=== PATIENT | male | born 1990 | race Caucasian/White ===

== ENCOUNTER 2021-08-07 16:15 | Emergency (ER) | payer MEDICAID ==
[~2021-08-07] VITALS: Ht 170.2 cm; Wt 68.2 kg
[2021-08-07] MEDS ORDERED: ACETAMINOPHEN 500 MG TABLET PO ONE (17:00)
[2021-08-07 19:30] VITALS: BP 112/72
== END 2021-08-07 19:41 ==
LOC: EMS 16:15
DX: S13.4XXA Sprain of ligaments of cervical spine, initial encounter (principal); S09.8XXA Other specified injuries of head, initial encounter; V89.2XXA Person injured in unspecified motor-vehicle accident, traffic, initial encounter; Y93.89 Activity, other specified; Y92.89 Other specified places as the place of occurrence of the external cause; Y99.8 Other external cause status
CPT/HCPCS: 70450; 72125; 99284

== ENCOUNTER 2025-02-10 17:49 | Inpatient (IN) | payer MEDICAID, OTHER ==
[~2025-02-10] VITALS: Ht 182.9 cm; Wt 77.7 kg
[2025-02-10] MEDS ORDERED: HYDROCODONE/ACETAMINOPHEN 5-325 MG TABLET PO PRN (19:45)
[2025-02-10] MEDS ORDERED: MORPHINE SULFATE 4 MG/ML SYRINGE IVP PRN (19:45)
[2025-02-10] MEDS ORDERED: ZOLPIDEM TARTRATE 5 MG TABLET PO PRN (19:45)
[2025-02-10] MEDS ORDERED: IPRATROPIUM BROMIDE 0.5 MG/2.5 ML NEB SOLUTION NEB PRN (19:45)
[2025-02-10] MEDS ORDERED: PROMETHAZINE HCL 25 MG TABLET PO PRN (19:45)
[2025-02-10] MEDS ORDERED: IBUPROFEN 600 MG TABLET PO PRN (19:45)
[2025-02-10] MEDS ORDERED: DICYCLOMINE HCL 10 MG CAPSULE PO PRN (19:45)
[2025-02-10] MEDS ORDERED: BISACODYL 10 MG RECTAL RECTAL SUPPOSITORY PR PRN (19:45)
[2025-02-10] MEDS ORDERED: LOPERAMIDE HCL 2 MG/15 ML SUSPENSION UDCUP PO PRN (19:45)
[2025-02-10] MEDS ORDERED: ACETAMINOPHEN 325 MG TABLET PO PRN ×2 (19:45)
[2025-02-10] MEDS ORDERED: MAGNESIUM HYDROXIDE SUSPENSION 30 ML UDCUP PO PRN (19:45)
[2025-02-10] MEDS ORDERED: ALBUTEROL SULFATE 2.5 MG/0.5 ML NEB SOLUTION NEB PRN (19:45)
[2025-02-10] MEDS ORDERED: MAG HYDROX/ALUMINUM HYD/SIMETH ES 30 ML SUSPENSION UDCUP PO PRN (19:45)
[2025-02-10] MEDS ORDERED: BACLOFEN 10 MG TABLET PO PRN (19:45)
[2025-02-10] MEDS ORDERED: ONDANSETRON HCL 4 MG/2 ML VIAL IVP PRN (19:45)
[2025-02-10 20:08] LABS: PLATELET COUNT (AUTO) 321 K/uL (150-450); RED BLOOD CELL COUNT(AUTO) 4.68 MIL/uL (4.50-5.90); RED CELL DISTRIBUTION WIDTH 14.7 % (11.5-14.5); WHITE BLOOD COUNT (AUTO) 6.0 K/uL (4.5-11.0)
[2025-02-10] MEDS: SODIUM CHLORIDE 0.45% 1,000 ML IV SCH (20:11)
[2025-02-10 20:17] LABS: CALCIUM, TOTAL 9.1 mg/dL (8.8-10.5); CREATININE 0.80 mg/dL (0.60-1.30); GLOMERULAR FILTR. RATE CALC > 60 mL/min (>60); GLUCOSE,RANDOM 107 mg/dL (70-110); SODIUM SERUM 142 mmol/L (136-145); UREA NITROGEN, BLOOD 22 mg/dL (7-18)
[2025-02-10 20:23] LABS: ASPARTATE AMINOTRANSFERASE 21 U/L (15-37); TOTAL PROTEIN, SERUM 7.2 g/dL (6.4-8.2)
[2025-02-10 20:29] LABS: ALCOHOL, BLOOD (SERUM) < 3 mg/dL (0-10)
[2025-02-10 21:39] VITALS: BP 120/73; PULSE 66; RESP 18; TEMP 98.1; O2SAT 100
[2025-02-10] MEDS: POTASSIUM CHLORIDE 20 MEQ ER TABLET PO ONE (22:18)
[2025-02-11] MEDS: HEPARIN SODIUM,PORCINE 5,000 UNITS/ML VIAL SQ SCH (00:15)
[2025-02-11 05:18] VITALS: BP 105/66; PULSE 68; RESP 18; TEMP 97.7; O2SAT 100
[2025-02-11 06:19] LABS: PH,URINE DRUG SCREEN 6.0 (5.0-8.0)
[2025-02-11 06:28] LABS: ALCOHOL, URINE DRUG SCREEN NEGATIVE (NEGATIVE); AMPHET/METH SCREEN,URINE POSITIVE (NEGATIVE); BARBITURATE SCREEN, URINE NEGATIVE (NEGATIVE); CANNABINOID SCREEN,URINE POSITIVE (NEGATIVE); COCAINE SCREEN,URINE NEGATIVE (NEGATIVE); METHADONE SCREEN, URINE NEGATIVE (NEGATIVE)
[2025-02-11 07:21] LABS: CALCIUM, TOTAL 8.8 mg/dL (8.8-10.5); CREATININE 0.84 mg/dL (0.60-1.30); GLOMERULAR FILTR. RATE CALC > 60 mL/min (>60); GLUCOSE,RANDOM 89 mg/dL (70-110); SODIUM SERUM 142 mmol/L (136-145); UREA NITROGEN, BLOOD 21 mg/dL (7-18)
[2025-02-11 08:00] VITALS: BP 98/61; PULSE 76; RESP 18; TEMP 98.1; O2SAT 100
[2025-02-11] MEDS: PANTOPRAZOLE SODIUM 40 MG DR TABLET PO SCH (09:04)
[2025-02-11 12:00] VITALS: BP 102/59; PULSE 65
[2025-02-11 17:00] VITALS: BP 100/60; PULSE 77; RESP 19; TEMP 98.3; O2SAT 95
[2025-02-11 17:01] VITALS: BP 100/60; PULSE 77; RESP 19; TEMP 98.3; O2SAT 95
[2025-02-11 20:00] VITALS: BP 106/76; PULSE 53; RESP 18; TEMP 98.1; O2SAT 99
[2025-02-12 04:00] VITALS: BP 94/62; PULSE 68; RESP 18; TEMP 97.9; O2SAT 100
[2025-02-12 12:45] VITALS: BP 100/50; PULSE 62; RESP 17; TEMP 96.9; O2SAT 99
== END 2025-02-12 17:30 | DRG 641 ==
LOC: EMS 17:57 → EDH 19:55 → 6S 21:30
PROVIDERS: ADMIT Hospitalist; ATTEND Hospitalist
DX: E87.6 Hypokalemia (principal); F11.13 Opioid abuse with withdrawal; E03.9 Hypothyroidism, unspecified; F15.10 Other stimulant abuse, uncomplicated
CPT/HCPCS: 80048; 80076; 80307; 84443; 85025; 87340; 99285; G0480; J1644